=== PATIENT | female | born 1990 | race African-American/Black ===

== ENCOUNTER 2023-08-07 22:30 | Emergency (ER) | payer OTHER ==
[2023-08-07 22:39] VITALS: BMI 33.2
[2023-08-07] MEDS ORDERED: ONDANSETRON 4 MG/2 ML VIAL IVPUSH ONE (22:51)
[2023-08-07] MEDS ORDERED: LACTATED RINGERS SOLUTION 1,000 ML/1,000 ML INFUS.BAG IV SCH (23:00)
[2023-08-07] MEDS ORDERED: PYRIDOXINE HCL (B-6) 50 MG TABLET (FP) PO SCH (23:45)
[2023-08-07 23:58] LABS: BASO % 0.3 % (0-2.0); EOS % 0.1 % (0-4.5); HEMOGLOBIN 11.8 GM/dL (10.7-15.3); LYMPH % 8.4 % (8-40); MCH 26.2 pg (25.7-33.7); MCHC 32.9 g/dl (32.0-36.0); MEAN CELL VOLUME 79.7 fl (80-96); MONO % 5.3 % (3.8-10.2); NEUT % 85.9 % (42.8-82.8); PLATELET COUNT 226 10^3/uL (134-434); RBC 4.51 M/mm3 (3.60-5.2); RDW 14.8 % (11.6-15.6); WHITE BLOOD COUNT 7.2 K/mm3 (4.0-10.0)
[2023-08-08 00:28] LABS: POTASSIUM 3.6 mmol/L (3.5-5.1)
[2023-08-08 00:30] LABS: ALBUMIN 3.3 g/dl (3.4-5.0); BLOOD UREA NITROGEN 8.8 mg/dL (7-18); CALCIUM 7.8 mg/dL (8.5-10.1); MAGNESIUM 1.9 mg/dL (1.8-2.4)
[2023-08-08 00:33] LABS: CREATININE 0.8 mg/dL (0.55-1.3); PHOSPHOROUS 2.6 mg/dL (2.5-4.9)
[2023-08-08 00:35] LABS: BILIRUBIN,TOTAL 0.5 mg/dL (0.2-1); TOT PROT 6.8 g/dl (6.4-8.2)
[2023-08-08 01:36] VITALS: BP 122/71; PULSE 94; RESP 18; TEMP 98.2
[2023-08-08] MEDS ORDERED: PYRIDOXINE HCL (B-6) 50 MG TABLET (FP) PO SCH (10:00)
== END 2023-08-08 01:48 | disposition home or self-care (01) ==
LOC: JER 22:30
DX: O21.9 Vomiting of pregnancy, unspecified (principal); O99.611 Diseases of the digestive system complicating pregnancy, first trimester; R19.7 Diarrhea, unspecified; O98.511 Other viral diseases complicating pregnancy, first trimester; U07.1 COVID-19; Z3A.08 8 weeks gestation of pregnancy
CPT/HCPCS: 0241U-QW; 36415; 80053; 83735; 84100; 85025; 99283-25

== ENCOUNTER 2024-02-24 11:15 | Inpatient (IN) | payer OTHER ==
[2024-02-24] MEDS: ELECTROLYTE-148 SOLN 1,000 ML IV SCH (11:30)
[2024-02-24] MEDS ORDERED: OXYTOCIN 20 UNITS in 0.9% NS 20 UNIT/1,000 ML INFUS.BAG IV ONE (11:50)
[2024-02-24] MEDS ORDERED: LIDOCAINE HCL 1% PRESERVATIVE FREE - 30ML VIAL ONE (11:50)
[2024-02-24] MEDS: OXYTOCIN 20 UNITS in 0.9% NS 20 UNIT/1,000 ML INFUS.BAG IV SCH (12:15)
[2024-02-24 12:36] VITALS: BMI 34.2
[2024-02-24 12:46] LABS: CORD BASE EXCESS -6.3 mmol/L (0-2); CORD HCO3 19.9 mmHg (20-29); CORD PCO2 42.1 mmHg (30-78); CORD pH 7.293 (7.14-7.44)
[2024-02-24 12:49] LABS: CORD BASE EXCESS -8.5 mmol/L (0-2); CORD HCO3 19.5 mmHg (20-29); CORD PCO2 49.7 mmHg (30-78); CORD pH 7.212 (7.14-7.44)
[2024-02-24] MEDS ORDERED: BISACODYL 10 MG SUPP.RECT RC PRN (12:55)
[2024-02-24] MEDS ORDERED: ACETAMINOPHEN 325 MG TABLET (FP) PO PRN (12:55)
[2024-02-24] MEDS ORDERED: METHYLERGONOVINE MALEATE 0.2 MG/1 ML AMP IM PRN (12:55)
[2024-02-24] MEDS ORDERED: IBUPROFEN 600 MG TABLET (FP) PO PRN (12:55)
[2024-02-24] MEDS ORDERED: BENZOCAINE 28 GM HEMORRHOIDAL OINTMENT TP PRN (12:55)
[2024-02-24] MEDS ORDERED: OXYTOCIN 20 UNITS in 0.9% NS 20 UNIT/1,000 ML INFUS.BAG IV SCH (13:00)
[2024-02-24 14:12] LABS: BASO % 0.2 % (0-2.0); EOS % 0.1 % (0-4.5); HEMATOCRIT 33.1 % (32.4-45.2); HEMOGLOBIN 11.2 GM/dL (10.7-15.3); LYMPH % 6.2 % (8-40); MCH 28.5 pg (25.7-33.7); MCHC 33.9 g/dl (32.0-36.0); MEAN CELL VOLUME 83.9 fl (80-96); MEAN PLT VOLUME 7.5 fl (7.5-11.1); MONO % 4.4 % (3.8-10.2); NEUT % 89.1 % (42.8-82.8); PLATELET COUNT 209 10^3/uL (134-434); RBC 3.94 M/mm3 (3.60-5.2); RDW 13.5 % (11.6-15.6); WHITE BLOOD COUNT 13.8 K/mm3 (4.0-10.0)
[2024-02-24 14:18] LABS: INR 0.96 (0.83-1.09)
[2024-02-24 14:21] LABS: ACTIVATED PTT 28.1 SECONDS (25.2-36.5)
[2024-02-24 14:31] LABS: POTASSIUM 4.3 mmol/L (3.5-5.1)
[2024-02-24 14:32] LABS: BLOOD UREA NITROGEN 5.8 mg/dL (7-18); CALCIUM 8.7 mg/dL (8.5-10.1)
[2024-02-24 14:36] LABS: CREATININE 0.7 mg/dL (0.55-1.3)
[2024-02-24] MEDS: WITCH HAZEL 50% (TUCKS) 40 PAD/JAR PAD TP PRN (22:03)
[2024-02-24] MEDS: BENZOCAINE 20% 57 GM BOTTLE TP PRN (22:05)
[2024-02-25 07:33] LABS: BASO % 0.1 % (0-2.0); EOS % 0.3 % (0-4.5); HEMATOCRIT 31.4 % (32.4-45.2); HEMOGLOBIN 10.8 GM/dL (10.7-15.3); LYMPH % 15.9 % (8-40); MCHC 34.6 g/dl (32.0-36.0); MEAN CELL VOLUME 83.9 fl (80-96); MEAN PLT VOLUME 7.4 fl (7.5-11.1); NEUT % 76.7 % (42.8-82.8); PLATELET COUNT 208 10^3/uL (134-434); RBC 3.74 M/mm3 (3.60-5.2); RDW 13.3 % (11.6-15.6)
[2024-02-25] MEDS: SENNOSIDES/DOCUSATE COMBO (SENNA PLUS) TABLET (UD) PO PRN (22:18)
[2024-02-26 10:25] VITALS: RESP 24
[2024-02-26 12:58] VITALS: BP 114/70; PULSE 84; TEMP 98.1
== END 2024-02-26 17:30 | disposition home or self-care (01) | DRG 560 ==
LOC: JDEL 11:15 → JLDR 11:30 → J3W 14:55
PROVIDERS: ADMIT Obstetrics & Gynecology; ATTEND Obstetrics & Gynecology
PROC: 10E0XZZ Delivery of Products of Conception, External Approach (ICD-10-PCS; principal; 2024-02-24)
PROC: 3E0334Z Introduction of Serum, Toxoid and Vaccine into Peripheral Vein, Percutaneous Approach (ICD-10-PCS; 2024-02-24)
DX: O36.0930 Maternal care for other rhesus isoimmunization, third trimester, not applicable or unspecified (principal); Z3A.37 37 weeks gestation of pregnancy; Z37.0 Single live birth
CPT/HCPCS: 36415; 36600; 59025; 59409; 80048; 82803; 85025; 85461; 85610; 85730; 86780; 86850; 86900; 86901; 96372; J2790